=== PATIENT | female | born 1975 | race Caucasian/White ===

== ENCOUNTER → 2019-05-25 | Outpatient (CLI) | payer BC, OTHER ==
--- NOTE | 2019-05-25 08:42 | Diagnostic Imaging Report ---
Indication: Pain in the lateral right breast. No prior mammograms are available for comparison. 2-D and 3-D bilateral diagnostic mammography was performed with CAD. Both breasts are heterogeneously dense, limiting the sensitivity of mammography. There is asymmetric density in the upper outer left breast, posterior depth. This most likely represents benign parenchymal asymmetry. Right breast is without evidence of discrete mass. No suspicious calcifications are seen. The axillae are unremarkable. Impression: 1. No suspicious abnormality in the right breast is identified. Even so, sonographic interrogation in the area of pain in the lateral right breast is recommended. 2. Asymmetric density upper outer left breast, likely benign parenchymal asymmetry. Even so, left breast ultrasound in the upper-outer left breast is recommended and will be performed today. BI-RADS 0 ACR BI-RADS Category 0: Incomplete. (Needs additional imaging evaluation). Result letter will be mailed to the patient. Note: At least 10% of breast cancer is not imaged by mammography. Dictated by: Dictated on workstation # [id number]
--- NOTE | 2019-05-25 09:31 | Diagnostic Imaging Report ---
Indication: Pain in the upper right breast. Patient also has asymmetric density in the upper-outer left breast. Study is performed for further evaluation. Correlation is made with diagnostic mammogram earlier same day. Sonographic interrogation of the upper half of the right breast was performed at the areas of pain. No sonographic abnormality seen. No solid or cystic mass is detected. Right axilla is unremarkable. In addition, the upper-outer left breast was evaluated. No suspicious mass is seen. There is no fluid collection or cysts. No sonographic abnormality is seen. Impression: BI-RADS category 1 Unremarkable bilateral breast ultrasound. No suspicious abnormality is detected. Dictated by: Dictated on workstation # [id number]
== END ==
LOC: RAD 08:03
PROVIDERS: ATTEND Nurse Practitioner
DX: N64.4 Mastodynia (principal); R92.2 Inconclusive mammogram
CPT/HCPCS: 76642; 77066

== ENCOUNTER 2019-07-07 09:02 | Outpatient (CLI) | payer OTHER ==
[~2019-07-07] VITALS: Ht 167 cm; Wt 77.2 kg
[~2019-07-07 09:02] MED LIST: ESCI10TA PO; OMEP40CA36 PO; TRAM50TA2 PO
== END 2019-07-07 09:36 | disposition home or self-care (01) ==
LOC: PREOP 09:02
PROVIDERS: ATTEND Surgery
DX: Z01.818 Encounter for other preprocedural examination (principal)

== ENCOUNTER → 2021-04-08 | Outpatient (CLI) | payer OTHER ==
[~2021-04-08] MED LIST changes: -OMEP40CA36 PO; +OMEP40CA6 PO; -TRAM50TA2 PO; +TRM50T PO
--- NOTE | 2021-04-08 14:52 | Diagnostic Imaging Report ---
PROCEDURE: Pelvic comp/transvaginal sonogram. TECHNIQUE: Complete transabdominal and transvaginal pelvic ultrasound was performed. In addition, limited pelvic Doppler was performed. INDICATION: Abnormal uterine bleeding. FINDINGS: The uterus is anteverted measuring 11.4 x 5.3 x 7.0 cm. The endometrium is thickened measuring up to approximately 19 mm. No myometrial mass is detected. The right ovary measures 3.6 x 2.3 x 2.3 cm and the left ovary measures 5.2 x 4.0 x 4.8 cm. The left ovary does contain a complex cyst with internal septation measuring 4.8 x 3.0 x 3.6 cm. There is blood flow to both ovaries. No free fluid is detected. IMPRESSION: 1. Abnormally thickened endometrium of 19 mm. 2. Complex left ovarian cyst. Followup in 6-8 weeks is recommended to confirm clearing. Dictated by: Dictated on workstation # [id number]
--- NOTE | 2021-04-08 15:33 | Diagnostic Imaging Report ---
INDICATION: Routine screening. COMPARISON: 05/25/2019. TECHNIQUE: 2D and 3D bilateral screening mammography was performed with CAD. FINDINGS: Both breasts are heterogeneously dense, limiting the sensitivity of mammography. The parenchymal pattern is stable. No spiculated mass or malignant-appearing microcalcifications are seen. The axillae are unremarkable. IMPRESSION: No mammographic features suspicious for malignancy are identified. ACR BI-RADS Category 1: Negative. Result letter will be mailed to the patient. Note: At least 10% of breast cancer is not imaged by mammography. Dictated by: Dictated on workstation # [id number]
== END ==
LOC: RAD 14:00
PROVIDERS: ATTEND Nurse Practitioner
DX: Z12.31 Encounter for screening mammogram for malignant neoplasm of breast (principal); N83.202 Unspecified ovarian cyst, left side; R93.89 Abnormal findings on diagnostic imaging of other specified body structures
CPT/HCPCS: 76830; 76856; 77063; 77067

== ENCOUNTER → 2021-10-06 | Outpatient (CLI) | payer OTHER ==
--- NOTE | 2021-10-06 11:00 | Diagnostic Imaging Report ---
PROCEDURE: Pelvic comp/transvaginal sonogram. TECHNIQUE: Complete transabdominal and transvaginal pelvic ultrasound was performed. In addition, limited pelvic Doppler was performed. INDICATION: Abnormal uterine bleeding. FINDINGS: The uterus is anteverted measuring 10.1 x 6.5 x 5.2 cm. No myometrial mass is detected. There are cervical nabothian cysts present. The endometrium is 9 mm in thickness. The right ovary measures 1.9 x 1.9 x 0.9 cm and the left ovary measures 4.2 x 3.0 x 1.8 cm. The right ovary contains an approximately 12 mm cyst. The left ovary contains a 3.2 cm cyst. There is blood flow to both ovaries. No free fluid is seen. IMPRESSION: Bilateral ovarian cysts with the largest on the left measuring 3.2 cm. The study is otherwise unremarkable. Dictated by: Dictated on workstation # [id number]
== END ==
LOC: RAD 10:00
PROVIDERS: ATTEND Obstetrics & Gynecology
DX: N83.202 Unspecified ovarian cyst, left side (principal); N83.201 Unspecified ovarian cyst, right side
CPT/HCPCS: 76830; 76856

== ENCOUNTER 2022-02-05 05:39 | Outpatient (CLI) | payer OTHER ==
[~2022-02-05] VITALS: Ht 167.7 cm; Wt 81.4 kg
[2022-02-05] MEDS ORDERED: RT-ALBUINH IH (12:37)
[2022-02-05] MEDS ORDERED: BUDE10.7 IH (12:37)
[2022-02-05] MEDS ORDERED: BIRTH CONTROL (12:37)
== END 2022-02-05 12:43 | disposition home or self-care (01) ==
LOC: PREOP 05:39
PROVIDERS: ATTEND Obstetrics & Gynecology
DX: Z01.818 Encounter for other preprocedural examination (principal)

== ENCOUNTER 2022-02-11 12:25 | Day surgery (SDC) | payer OTHER ==
[2022-02-11] VITALS (10 sets, daily range): BP systolic 117–140; BP diastolic 64–88
[~2022-02-11] VITALS: Ht 167.7 cm; Wt 81.4 kg
--- NOTE | 2022-02-11 10:00 | Progress Note-Post Operative ---
Post-Operative Progess Note Surgeon (s)/Curriculum Developer (s) Surgeon GABRIELLE GUAJARDO MD Curriculum Developer: Eliza Pre-Operative Diagnosis Menometrorrhagia Post-Operative Diagnosis Same with pathology pending Procedure & Operative Findings Date of Procedure 02/11/22 Procedure Performed/Findings Total laparoscopic hysterectomy with bilateral salpingectomiesAnd with left oophorectomy Anesthesia Type General anesthesia Estimated Blood Loss Estimated blood loss (mL): Minimal Specimens/Packing Specimens Removed Uterus and fallopian tubes And left ovary GABRIELLE GUAJARDO MD Feb 11, 2022 10:00
--- NOTE | 2022-02-11 10:00 | Progress Note-Pre Operative ---
Pre-Operative Progress Note H&P Reviewed The H&P was reviewed, patient examined and no changes noted. Date Seen by Provider: Feb 11, 2022 Time Seen by Provider: 12:40 Date H&P Reviewed: Feb 11, 2022 Time H&P Reviewed: 12:40 Pre-Operative Diagnosis: Menometrorrhagia GABRIELLE GUAJARDO MD Feb 11, 2022 10:00
--- NOTE | 2022-02-11 10:02 | Discharge Inst-Surgical ---
Discharge Inst-Surgical Depart Medication/Instructions New, Converted or Re-Newed RX: Transmitted to Pharmacy Consults/Follow Up Patient Instructions: As directed Orders & Referrals Follow Up Appt: Return to clinic on Wednesday, February 13, 2022 for staple removal Call to make follow up appt. for patient in 4 weeks. Activity: Rest for 24 hours, than as tolerated. Wound Care: May remove Band-Aid tomorrow. Replace as desired. Keep incisions clean and dry. Wash daily with soap and water. Prescriptions for discharge medications have been sent to patient's pharmacy from my office and include Percocet Motrin and Colace Diet: As tolerated may shower or tub bathe as desired. No driving for 24 hours, no alcoholic beverages for 24 hours, and nothing per vagina (no tampons, douching, or intercourse) for 8 weeks. Patient to return to the clinic as soon as possible for: Temperature greater than 101F, Severe Pain, Foul discharge from incision or vagina, Excessive Bleeding (more than a period). Activity Activity as Tolerated: No Diet Discharge Diet: No Restrictions GABRIELLE GUAJARDO MD Feb 11, 2022 10:02
[~2022-02-11 12:25] MED LIST changes: +BIRTH CONTROL; +BUDE10.7 IH; +RT-ALBUINH IH
[2022-02-11] MEDS ORDERED: LACTATED RINGERS 1,000 ML IV PRN (13:00)
[2022-02-11] MEDS ORDERED: ceFAZolin INJECTION 1,000 MG VIAL IV ONE (13:00)
[2022-02-11] MEDS ORDERED: ONDANSETRON 4 MG/2 ML (SDV) Z0FRAN ONE ×2 (13:12→16:12)
[2022-02-11] MEDS ORDERED: fentaNYL INJ 100 MCG/2 ML AMP ONE (13:12)
[2022-02-11] MEDS ORDERED: LIDOCAINE PF 2% 5 ML (XYLOCAINE) VIAL ONE (13:12)
[2022-02-11] MEDS ORDERED: ROCURONIUM 50 MG/5 ML (ZEMURON) VIAL IV ONE (13:12)
[2022-02-11] MEDS ORDERED: SEVOFLURANE (ULTANE) 15 ML INHAL SOLN ONE ×2 (13:12→15:39)
[2022-02-11] MEDS ORDERED: proPOfol 200 MG/20 ML (DIPRIVAN) VIAL IV ONE (13:12)
[2022-02-11] MEDS ORDERED: MIDAZOLAM 2 MG/2 ML (VERSED) VIAL ONE (13:13)
[2022-02-11 13:29] LABS: BASOPHILS # (AUTO) 0.1 10^3/uL (0.0-0.1); BASOPHILS % (AUTO) 1 % (0-10); EOSINOPHILS % (AUTO) 0 % (0-10); HEMATOCRIT 28 % (35-52); HEMOGLOBIN 8.1 g/dL (11.5-16.0); LYMPHOCYTES # (AUTO) 2.2 10^3/uL (1.0-4.0); LYMPHOCYTES % (AUTO) 17 % (12-44); MEAN CORPUSCULAR HEMOGLOBIN 21 pg (25-34); MEAN CORPUSCULAR HGB CONC 29 g/dL (32-36); MEAN CORPUSCULAR VOLUME 71 fL (80-99); MEAN PLATELET VOLUME 8.9 fL (9.0-12.2); MONOCYTES # (AUTO) 0.6 10^3/uL (0.0-1.0); MONOCYTES % (AUTO) 5 % (0-12); NEUTROPHILS # (AUTO) 9.7 10^3/uL (1.8-7.8); NEUTROPHILS % (AUTO) 76 % (42-75); PLATELET COUNT 492 10^3/uL (130-400); WHITE BLOOD COUNT 12.7 10^3/uL (4.3-11.0)
[2022-02-11] MEDS ORDERED: LIDOCAINE/EPI 2% 1:200,00 (XYLOCAINE) 20 ML VIAL ONE (14:33)
[2022-02-11] MEDS ORDERED: HYDROmorphone 2 MG/ML VIAL (DILAUDID) ONE ×2 (14:57→16:12)
[2022-02-11] MEDS ORDERED: SUGAMMADEX 500 MG/5 ML VIAL (BRIDION) IV ONE (15:36)
[2022-02-11] MEDS ORDERED: ONDANSETRON 4 MG/2 ML (SDV) Z0FRAN IVP PRN ×3 (16:00→17:30)
[2022-02-11] MEDS ORDERED: HYDROmorphone 2 MG/ML VIAL (DILAUDID) IV ONE (16:00)
[2022-02-11] MEDS ORDERED: fentaNYL INJ 100 MCG/2 ML AMP IVP PRN (17:30)
[2022-02-11] MEDS: KETOROLAC 30 MG/ML VIAL IVP SCH ×2 (18:00→23:21)
[2022-02-11] MEDS: D5 LR IV SOLUTION 1,000 ML IV SCH (18:09)
[2022-02-11] MEDS: oxyCODONE/APAP 5/325MG (PERCOCET 5) TABLET PO PRN ×2 (18:14→22:49)
[2022-02-11] MEDS: DOCUSATE SODIUM 100 MG (COLACE) CAP PO SCH (21:14)
[2022-02-12 04:14] VITALS: BP 129/68
[2022-02-12] MEDS: oxyCODONE/APAP 5/325MG (PERCOCET 5) TABLET PO PRN ×3 (04:15→12:26)
[2022-02-12] MEDS: KETOROLAC 30 MG/ML VIAL IVP SCH (05:37)
--- NOTE | 2022-02-12 05:47 | OPERATIVE REPORT ---
DATE OF SERVICE: 02/11/2022 PREOPERATIVE DIAGNOSES: Menorrhagia and menometrorrhagia. POSTOPERATIVE DIAGNOSES: Menorrhagia and menometrorrhagia. Multiloculated left ovarian cyst. OPERATIVE PROCEDURE: Total laparoscopic hysterectomy with bilateral salpingectomies and left oophorectomy. OPERATIVE DESCRIPTION: With the patient in the supine position under satisfactory general anesthesia, she was repositioned in the dorsal lithotomy position in the Trino stirrups and prepped and draped in the usual fashion for abdominal surgery and vaginal surgery using the da Jean for assistance. A weighted speculum placed in posterior fornix of vagina, cervix exposed and grasped anteriorly with single tooth tenaculum. Uterus sounded to 12 cm with uterine sound. Cervix was then serially dilated with Nir dilators to accommodate a Talia II manipulator, which was used placing a 6 mm x 8 cm colpotomy uterine probe and a 30 mm colpotomy ring. Sutures of #1 Vicryl placed at 3 and 9 o'clock position of the cervix to affix the uterus to the manipulator. The tenaculum and speculum were removed and Leos catheter was placed in the urinary bladder. A 12 mm incision was made superior to the umbilicus. A Veress needle was placed through that incision into abdominal cavity. Correct placement confirmed with water drop test. The abdomen was insufflated with 2.4 liters of carbon dioxide. The Veress needle was removed and 12 mm Optiview laparoscopic port placed. The patient was placed in slight degree of Trendelenburg. The abdominal wall was transilluminated and 8 mm ports were placed through incisions of those sizes about 3 cm superior to the umbilicus and 8 cm lateral to the umbilicus. All three port sites were infiltrated with 1% lidocaine with epinephrine prior to incision. The patient was now placed in steep Trendelenburg allowing the bowel spill out of the pelvis. The da Jean column was advanced on the patient's . Operative instruments were placed in the right and left lateral ports and I retired to the da Jean console. At the console using the vessel sealer on the right and bipolar fenestrated grasper on the left, the pelvis was first examined. The right ovary was somewhat atretic, but otherwise normal appearing. Both fallopian tubes showed evidence of tubal sterilization. There was hydrosalpinx bilaterally from the nature of the multiple segments of fallopian tube that had been ligated. There were several locular cyst involving the left ovary. Decision was made to go ahead with left oophorectomy followed conserving the right ovary. The uterus was large, bulky and mottled in appearance consistent with adenomyosis. Laparoscope was rotated. The appendix was identified. It was a normal vermiform appendix and was left in situ. The laparoscope was brought back to the pelvis. Both ureters were identified and were well away from the IP ligaments. The right fallopian tube was grasped and elevated and the mesosalpinx was clamped, cauterized and divided with the vessel sealer across to the uteroovarian pedicle, which was clamped, cauterized and divided as well that was carried across the round ligament down the broad ligament down onto the cardinal ligament on the right, allowing for eventual removal of the right fallopian tube and conservation of the right ovary. On this left side, dissection was carried across the IP ligament to allow for removal of the left ovary with the uterus as well. The mesovarium was clamped, cauterized and divided after the IP ligament and now dissection was carried across the round ligament, across broad ligament down on to the cardinal ligament. The anterior lower uterine segment peritoneum was then divided with monopolar anna. The bladder was carefully dissected down off the lower uterine segment and colpotomy incision was started at 12 o'clock position onto the colpotomy ring, that incision was continued circumferentially until the entire colpotomy ring was exposed. This freed the uterus, which was extracted through the vagina without difficulty. The vaginal cuff was closed with a same suture V-Loc barbed suture starting from the right angle and continuing across to the left angle and taking care to ensure inclusion of the uterine vessel pedicles bilaterally. Hemostasis was complete. There was one implant of endometriosis on the right ovarian fossa. This was grasped with the cautery and destroyed. There was no remaining endometriosis seen. With hemostasis complete, no abnormal pathology, the procedure was terminated. The operative instruments were removed under direct vision as were the ports. The abdomen was evacuated of insufflating gas in the process of removing the ports. There was no bleeding noted. The skin incisions were stapled after closing the fascia at the supraumbilical incision with [id number] suture of 2-0 Vicryl. Speculum was replaced in the vagina. The vaginal cuff was examined and was found completely hemostatic and completely reapproximated. Now with sponge and needle counts correct, hemostasis assured. Blood loss minimal. The patient was uneventfully awakened from her general anesthesia and transferred to recovery room in stable condition. Job ID: [id number] DocumentID: [id number] Dictated Date: 02/11/2022 18:45:36 Fulfillment Representative Date: 02/12/2022 05:47:15 Dictated By: GABRIELLE GUAJARDO MD
[2022-02-12] MEDS: D5 LR IV SOLUTION 1,000 ML IV SCH ×2 (06:05→09:30)
[2022-02-12] MEDS: DOCUSATE SODIUM 100 MG (COLACE) CAP PO SCH (08:08)
[2022-02-12 08:10] VITALS: BP 138/66
--- NOTE | 2022-02-12 08:21 | Progress Note ---
Standard Progress Note Progress Notes/Assess & Plan Date Seen by a Provider: Feb 12, 2022 Time Seen by a Provider: 08:20 Progress/Assessment & Plan There is noThis patient is without complaint. She is ambulating, voiding, tolerating oral intake well has good pain control. She is requesting discharge home. Vital Signs Date Time Temp Pulse Resp B/P (MAP) Pulse Ox O2 Delivery O2 Flow Rate FiO2 02/12/22 08:10 36.0 89 16 138/66 (90) 99 Room Air 02/12/22 04:14 36.9 85 18 129/68 (88) 99 Room Air 02/11/22 23:21 36.5 79 18 138/67 (90) 98 Room Air 02/11/22 19:32 36.3 84 16 140/71 (94) 99 Room Air 02/11/22 17:20 98 Room Air 02/11/22 17:20 36.2 81 22 134/68 (90) 98 Room Air 02/11/22 16:45 Room Air 02/11/22 16:36 36.5 17 134/80 (98) 98 Room Air 02/11/22 16:30 16 135/84 (101) 98 Room Air 02/11/22 16:20 OxyMask 10 02/11/22 16:20 14 135/88 (104) 100 OxyMask 10 02/11/22 16:10 18 125/64 (84) 100 OxyMask 10 02/11/22 16:00 18 117/66 (83) 100 OxyMask 10 02/11/22 15:50 OxyMask 10 02/11/22 15:50 36.4 16 137/75 (95) 99 OxyMask 10 02/11/22 12:32 36.8 96 22 129/73 (91) 99 Room Air I & O 02/12/22 07:00 Intake Total 2740 ml Output Total 1280 ml Balance 1460 ml Vital signs are stable. Patient is afebrile. The abdomen is benign Extremities show no clubbing or cyanosis . Pelvic exam is deferred Assessment and plan Postoperative day #1 doing well. Plan for discharge home with follow-up in clinic. Patient does have significant anemia and we will recheck her hemoglobin at return to clinic in 1 month Final Diagnosis Menometrorrhagia to the point of anemia GABRIELLE GUAJARDO MD Feb 12, 2022 08:21
[2022-02-12] MEDS ORDERED: DOCUSATE SODIUM 100 MG (COLACE) CAP PO SCH (09:00)
--- NOTE | 2022-02-12 10:04 | Anesthesia-General Post-Op ---
General Patient Condition Mental Status/LOC: Same as Preop Cardiovascular: Satisfactory Nausea/Vomiting: Absent Respiratory: Satisfactory Pain: Controlled Complications: Absent Post Op Complications Complications None Follow Up Care/Instructions Patient Instructions None needed. Anesthesia/Patient Condition Patient Condition Patient is doing well, no complaints, stable vital signs, no apparent adverse anesthesia problems. No complications reported per nursing. CHIDI AZUL CRNA Feb 12, 2022 10:04
[2022-02-12] MEDS ORDERED: IBUPROFEN 800 MG (MOTRIN) TAB PO SCH (18:00)
== END 2022-02-12 12:30 | disposition home or self-care (01) ==
LOC: SDC 12:25 → WS 17:25 → SDC 02-12 12:30
PROVIDERS: ATTEND Obstetrics & Gynecology
DX: N80.0 Endometriosis of uterus (principal); N83.202 Unspecified ovarian cyst, left side; N92.0 Excessive and frequent menstruation with regular cycle; N92.1 Excessive and frequent menstruation with irregular cycle; F17.210 Nicotine dependence, cigarettes, uncomplicated
CPT/HCPCS: 36415; 84703; 85025; 87081; 94664

== ENCOUNTER 2022-04-02 10:37 | Day surgery (SDC) | payer OTHER ==
[2022-04-02] VITALS (12 sets, daily range): BP systolic 89–116; BP diastolic 52–87
[~2022-04-02] VITALS: Ht 167 cm; Wt 81.4 kg
[2022-04-02 11:45] LABS: BASOPHILS # (AUTO) 0.1 10^3/uL (0.0-0.1); BASOPHILS % (AUTO) 0 % (0-10); EOSINOPHILS % (AUTO) 0 % (0-10); HEMATOCRIT 31 % (35-52); HEMOGLOBIN 8.9 g/dL (11.5-16.0); LYMPHOCYTES # (AUTO) 1.5 10^3/uL (1.0-4.0); LYMPHOCYTES % (AUTO) 6 % (12-44); MEAN CORPUSCULAR HEMOGLOBIN 21 pg (25-34); MEAN CORPUSCULAR HGB CONC 29 g/dL (32-36); MEAN CORPUSCULAR VOLUME 73 fL (80-99); MONOCYTES # (AUTO) 0.8 10^3/uL (0.0-1.0); MONOCYTES % (AUTO) 3 % (0-12); NEUTROPHILS # (AUTO) 20.5 10^3/uL (1.8-7.8); NEUTROPHILS % (AUTO) 89 % (42-75); PLATELET COUNT 578 10^3/uL (130-400); WHITE BLOOD COUNT 22.9 10^3/uL (4.3-11.0)
[2022-04-02] MEDS ORDERED: ceFAZolin INJECTION 1,000 MG VIAL IV ONE (12:00)
[2022-04-02] MEDS ORDERED: metroNIDAZOLE 500 MG/100 ML IVPB (PRE-MIX) IV ONE (12:00)
[2022-04-02] MEDS ORDERED: SEVOFLURANE (ULTANE) 15 ML INHAL SOLN ONE ×2 (12:06→14:10)
[2022-04-02] MEDS ORDERED: LIDOCAINE PF 2% 5 ML (XYLOCAINE) VIAL ONE (12:06)
[2022-04-02] MEDS ORDERED: MIDAZOLAM 2 MG/2 ML (VERSED) VIAL ONE (12:06)
[2022-04-02] MEDS ORDERED: fentaNYL INJ 100 MCG/2 ML AMP ONE (12:06)
[2022-04-02] MEDS ORDERED: ROCURONIUM 50 MG/5 ML (ZEMURON) VIAL IV ONE (12:06)
[2022-04-02] MEDS ORDERED: proPOfol 200 MG/20 ML (DIPRIVAN) VIAL IV ONE (12:06)
[2022-04-02] MEDS ORDERED: LACTATED RINGERS 1,000 ML IV PRN (12:15)
[2022-04-02] MEDS ORDERED: LIDOCAINE/EPI 2% 1:200,00 (XYLOCAINE) 20 ML VIAL ONE (12:26)
[2022-04-02] MEDS ORDERED: ESTRADIOL VAGINAL CREAM 42.5 GM (ESTRACE) VG ONE (12:26)
[2022-04-02 12:28] LABS: BAND NEUTROPHILS 2 %; LYMPHOCYTES % (MANUAL) 6 %; NEUTROPHILS % (MANUAL) 92 %
[2022-04-02 12:29] LABS: STOMATOCYTES SLIGHT; TARGET CELLS SLIGHT
[2022-04-02 12:32] LABS: POLYCHROMASIA SLIGHT
[2022-04-02 12:33] LABS: HYPOCHROMASIA MODERATE
[2022-04-02 12:34] LABS: ANISOCYTOSIS MODERATE
--- NOTE | 2022-04-02 13:03 | Progress Note-Pre Operative ---
Pre-Operative Progress Note Date of Available H&P: Apr 02, 2022 Date H&P Reviewed: Apr 02, 2022 Time H&P Reviewed: 13:02 History & Physical: No changes noted Changes from last HP none Pre-Operative Diagnosis: Vaginal cuff dehiscence/Acute abdominal pain GABRIELLE GUAJARDO MD Apr 02, 2022 13:03
--- NOTE | 2022-04-02 13:04 | Progress Note-Post Operative ---
Post-Operative Progess Note Surgeon (s)/Scheduling Specialist (s) Surgeon GABRIELLE GUAJARDO MD Scheduling Specialist: RN Pre-Operative Diagnosis Vaginal cuff dehiscence/Acute abdominal pain Post-Operative Diagnosis Same with small bowel adhesions in the pelvis and small bowel extrusion into the vagina Procedure & Operative Findings Date of Procedure 04/02/22 Procedure Performed/Findings Diagnostic laparoscopyWith laparoscopic adhesiolysis/enterolysis and closure of the vaginal cuff Anesthesia Type General Estimated Blood Loss Estimated blood loss (mL): min Specimens/Packing Specimens Removed None GABRIELLE GUAJARDO MD Apr 02, 2022 13:04
--- NOTE | 2022-04-02 13:06 | Discharge Inst-Surgical ---
Discharge Inst-Surgical Depart Medication/Instructions New, Converted or Re-Newed RX: Transmitted to Pharmacy Consults/Follow Up Patient Instructions: As directed Orders & Referrals Follow Up Appt: Call to make follow up appt. for patient in 2 weeks. Activity: Rest for 24 hours, than as tolerated. Diet: As tolerated- shower or tub bathe as desired. No driving for 24 hours, no alcoholic beverages for 24 hours, and nothing per vagina (no tampons, douching, or intercoarse) for 4 weeks. Patient to return to the clinic as soon as possible for: Temperature greater than 101F, Severe Pain, Foul discharge from incision or vagina, Excessive Bleed ing (more than a period). Activity Activity as Tolerated: No Diet Discharge Diet: No Restrictions GABRIELLE GUAJARDO MD Apr 02, 2022 13:06
[2022-04-02] MEDS ORDERED: KETOROLAC 30 MG/ML VIAL IVP ONE (13:15)
[2022-04-02] MEDS ORDERED: D5 LR IV SOLUTION 1,000 ML IV SCH (13:15)
[2022-04-02] MEDS ORDERED: ONDANSETRON 4 MG/2 ML (SDV) Z0FRAN IVP PRN (13:15)
[2022-04-02] MEDS ORDERED: NEOSTIGMINE (BLOXIVERZ ) 1 MG/1ML 10 ML VIAL ONE (14:12)
[2022-04-02] MEDS ORDERED: GLYCOPYRROLATE 0.2 MG/ML (ROBINUL) 2 ML VIAL ONE (14:12)
--- NOTE | 2022-04-02 14:22 | Anesthesia-General Post-Op ---
General Patient Condition Mental Status/LOC: Same as Preop Cardiovascular: Satisfactory Nausea/Vomiting: Absent Respiratory: Satisfactory Pain: Controlled Complications: Absent Post Op Complications Complications None Follow Up Care/Instructions Patient Instructions None needed. Anesthesia/Patient Condition Patient Condition Patient is doing well, no complaints, stable vital signs, no apparent adverse anesthesia problems. No complications reported per nursing. CHIDI AZUL CRNA Apr 02, 2022 14:22
[2022-04-02] MEDS ORDERED: MEPERIDINE (DEMEROL) INJ 50 MG/ML IVP ONE (14:30)
[2022-04-02] MEDS ORDERED: HYDROmorphone 2 MG/ML VIAL (DILAUDID) IV ONE (14:30)
[2022-04-02] MEDS ORDERED: morphine INJ 10 MG/ML 1ML (SYR OR VIAL) IVP ONE (14:30)
[2022-04-02] MEDS: ONDANSETRON 4 MG/2 ML (SDV) Z0FRAN IVP PRN ×2 (14:40→15:19)
--- NOTE | 2022-04-03 03:44 | OPERATIVE REPORT ---
DATE OF SERVICE: PREOPERATIVE DIAGNOSIS: Vaginal cuff separation and acute abdomen. POSTOPERATIVE DIAGNOSIS: Vaginal cuff separation and acute abdomen with small bowel adhesions in the pelvis. OPERATIVE PROCEDURE: Diagnostic laparoscopy with laparoscopic adhesiolysis as well as repair of vaginal cuff separation. OPERATIVE DESCRIPTION: With the patient in the supine position under satisfactory general anesthesia, she was repositioned in the dorsal lithotomy position in the [facility] and prepped and draped in the usual fashion for abdominal and vaginal surgery. A 5 mm incision was made in the patient's left upper quadrant. Veress needle was placed through that incision into the abdominal cavity. Correct placement confirmed with water drop test and the abdomen insufflated with 2.4 liters of carbon dioxide. The Veress needle was removed and a 5 mm Optiview laparoscopic port placed. The abdominal wall was transilluminated and a 5 mm port was placed suprapubically through an incision of that size as well. The patient was now placed in Trendelenburg allowing the bowel was filled partially above the pelvis. A grasper was used to help extract the balance of the small bowel from the pelvis. It was seemed that there was small bowel adherent to the vaginal cuff and protruding down into the vagina from the open vaginal cuff. With the bowel extracted and moved out of the way, the laparoscopic portion of the procedure was paused in favor of vaginal approach for repair of the vaginal cuff separation. The labia and vagina were prepped with Betadine. The urinary bladder was emptied with a straight catheter. A weighted speculum placed in the posterior fornix of the vagina and a [place] retractor placed anteriorly. The posterior lip of the vaginal cuff was grasped and elevated with an Allis clamp. With some difficulty, the anterior lip of the vaginal cuff was grasped, was packed and reduced back into the peritoneal cavity. A sales account representative culture had been taking prior to presenting to the operating room of the vaginal vault apex and the leakage from the peritoneal cavity. A 2-0 Vicryl suture was then used to reapproximate the vaginal cuff starting from the right angle and continuing stepwise across the vaginal cuff in a running locked fashion until the entire vaginal cuff was reapproximated. Care was taken to ensure bowel was up out of the way initially with packing with a wet laparotomy towel and finally with inspection and placement of each of the sutures as the vaginal cuff was closed. With the vaginal cuff was closed and hemostasis assured, attention was turned back to the laparoscopic aspects. With the laparoscope, the pelvis was examined again, the bowel was seemed to be completely free from the vaginal cuff. The vaginal cuff was closed completely and intact and hemostatic. There was small bowel, now still adherent to the bladder dome that the bowel was dissected free bluntly and there was a relatively filmy, but not terribly fibrous adhesion. The bowel was now completely freed from the pelvis. There was no remaining abnormal pathology. The field was completely hemostatic. At this point, the procedure was terminated. The operative instruments were removed under direct vision as was the ports. The abdomen was evacuated of insufflating gas in the process of removing the ports. The skin incisions were closed with interrupted sutures of 3-0 nylon. Final exam in the vagina confirmed the integrity of the vaginal cuff and complete hemostasis. The patient was now uneventfully awakened from her general anesthesia and transferred to recovery room in stable condition with plans for discharge home PAR. Sponge and needle counts were correct on completion of the procedure. Blood loss was minimal. Job ID: [id number] DocumentID: [id number] Dictated Date: 04/02/2022 18:53:58 Multiple Spindle Router Operator Date: 04/03/2022 03:44:21 Dictated By: GABRIELLE GUAJARDO MD
== END 2022-04-02 16:58 ==
LOC: SDC 10:37
PROVIDERS: ATTEND Obstetrics & Gynecology
DX: T81.31XA Disruption of external operation (surgical) wound, not elsewhere classified, initial encounter (principal); R10.0 Acute abdomen; K66.0 Peritoneal adhesions (postprocedural) (postinfection); F17.210 Nicotine dependence, cigarettes, uncomplicated
CPT/HCPCS: 36415; 85007; 85027; 87081

== ENCOUNTER → 2023-05-17 | Outpatient (CLI) | payer OTHER ==
[~2023-05-17] MED LIST changes: +ALBU8.5H6 IH; -RT-ALBUINH IH
--- NOTE | 2023-05-17 13:07 | Diagnostic Imaging Report ---
Indication: Routine screening. Comparison is made with prior mammogram from 04/08/2021 and 05/25/2019. 2-D and 3-D bilateral screening mammography was performed with with CAD. The current study was also evaluated with a Computer Aided Detection (CAD) system. Both breasts are heterogeneously dense, limiting the sensitivity of mammography. There is a density in the right breast on the MLO view posterior depth, located at the nipple line. This appears to be more prominent when compared with prior mammograms. No definite correlate on the CC view is identified. Left breast is unremarkable. No malignant-appearing microcalcifications are seen. Axillae are unremarkable. IMPRESSION: BI-RADS 0 Right breast density. Additional views are recommended for further evaluation. ACR BI-RADS Category 0: Incomplete. (Needs additional imaging evaluation). Result letter will be mailed to the patient. Note: At least 10% of breast cancer is not imaged by mammography. Dictated by: Dictated on workstation # [id number]
== END ==
LOC: RAD 10:00
PROVIDERS: ATTEND Nurse Practitioner Family
DX: Z12.31 Encounter for screening mammogram for malignant neoplasm of breast (principal); Z00.01 Encounter for general adult medical examination with abnormal findings; Z12.11 Encounter for screening for malignant neoplasm of colon; E66.8 Other obesity; E78.49 Other hyperlipidemia; Z72.0 Tobacco use; Z71.6 Tobacco abuse counseling; J44.9 Chronic obstructive pulmonary disease, unspecified; Z01.89 Encounter for other specified special examinations; B00.9 Herpesviral infection, unspecified; M54.50 Low back pain, unspecified
CPT/HCPCS: 77063; 77067